=== PATIENT | female | born 1940 | race Caucasian/White ===

== ENCOUNTER 2023-09-21 12:16 | Inpatient (IN) | payer MEDICARE, BC ==
[~2023-09-21] VITALS: Ht 152.4 cm; Wt 53.5 kg
[2023-09-21 13:02] LABS: BASOPHILS # (AUTO) 0.1 K/uL (0.0-0.2); BASOPHILS % (AUTO) 0.4 % (0.0-2.0); EOSINOPHILS % (AUTO) 0.2 % (0.0-6.0); HEMATOCRIT 40 % (33-45); HEMOGLOBIN 12.3 g/dL (11.5-14.8); LYMPHOCYTES # (AUTO) 0.7 K/uL (0.8-4.8); LYMPHOCYTES % (AUTO) 5.3 % (20.0-44.0); MEAN CORPUSCULAR HEMOGLOBIN 25 PG (26.0-33.0); MEAN CORPUSCULAR HGB CONC 31 g/dl (31.0-36.0); MEAN CORPUSCULAR VOLUME 81 fL (82-100); MONOCYTES # (AUTO) 0.9 K/uL (0.1-1.30); MONOCYTES % (AUTO) 7.5 % (2.0-12.0); NEUTROPHILS # (AUTO) 10.6 K/uL (1.8-8.9); NEUTROPHILS % (AUTO) 86.6 % (43.0-81.0); PLATELET COUNT (AUTO) 214 K/uL (150-450); RED BLOOD CELL COUNT(AUTO) 4.87 MIL/uL (4.0-5.2); WHITE BLOOD COUNT (AUTO) 12.3 K/uL (4.3-11.0)
[2023-09-21 13:10] LABS: CALCIUM, SERUM 8.7 mg/dL (8.5-10.1); CREATININE 0.8 mg/dL (0.6-1.3); POTASSIUM 4.7 mmol/L (3.5-5.1)
[2023-09-21 13:16] LABS: ALBUMIN 2.7 g/dL (3.4-5.0); BILIRUBIN,DIRECT 0.2 mg/dL (0.0-0.2); BILIRUBIN,TOTAL 0.5 mg/dL (0.2-1.0); TOTAL PROTEIN, SERUM 6.4 g/dL (6.4-8.2)
[2023-09-21] MEDS ORDERED: ONDANSETRON HCL/PF 4 MG/2 ML VIAL ONE (13:38)
[2023-09-21] MEDS ORDERED: MORPHINE SULFATE INJ 4 MG/ML DISP.SYRIN ONE (13:39)
[2023-09-21] MEDS ORDERED: BUME2TAB7 PO (13:42)
[2023-09-21] MEDS ORDERED: APIX2.5T PO (13:42)
[2023-09-21] MEDS ORDERED: POLY17PO4 PO (13:42)
[2023-09-21] MEDS ORDERED: GABA600T12 PO (13:42)
[2023-09-21] MEDS ORDERED: ASCO-352 PO (13:42)
[2023-09-21] MEDS ORDERED: MAGN400O6 PO (13:42)
[2023-09-21] MEDS ORDERED: ZINC50TA69 PO (13:42)
[2023-09-21] MEDS ORDERED: PSEU60TA94 PO (13:42)
[2023-09-21] MEDS ORDERED: DIGO125T PO (13:42)
[2023-09-21] MEDS ORDERED: POVI3780 TP (13:42)
[2023-09-21] MEDS ORDERED: DICL100G26 TP (13:42)
[2023-09-21] MEDS ORDERED: LEVO25TA9 PO (13:42)
[2023-09-21] MEDS ORDERED: RIME75TA PO (13:42)
[2023-09-21] MEDS ORDERED: BACL10TA PO (13:42)
[2023-09-21] MEDS ORDERED: TRAM50TA2 PO (13:42)
[2023-09-21] MEDS ORDERED: BISA10SU11 RC (13:42)
[2023-09-21] MEDS ORDERED: OXYC15TA2 PO (13:42)
[2023-09-21] MEDS ORDERED: METO-357 PO (13:42)
[2023-09-21] MEDS ORDERED: ACET-2605 PO (13:42)
[2023-09-21] MEDS ORDERED: MULT-213 PO (13:42)
[2023-09-21] MEDS ORDERED: NALO4SPR NS (13:42)
[2023-09-21] MEDS ORDERED: LIDO1ADH82 TP (13:42)
[2023-09-21] MEDS ORDERED: CHOL5POW PO (13:42)
[2023-09-21] MEDS ORDERED: NA P133E RC (13:42)
[2023-09-21 13:45] LABS: APPEARANCE,URINE Clear (CLEAR); BILIRUBIN,URINE Negative (NEGATIVE); BLOOD, URINE Small Ery/uL (NEGATIVE); COLOR,URINE YELLOW (YELLOW); KETONES,URINE Negative (NEGATIVE); LEUKOCYTE ESTERASE ,URINE Negative (NEGATIVE); NITRITE, URINE Negative (NEGATIVE); PROTEIN,URINE Negative (NEGATIVE); UGLUCOSE Negative (NEGATIVE); UROBILINOGEN,URINE 0.2 EU/dL (0.2)
[2023-09-21] MEDS: MORPHINE SULFATE INJ 2 MG/ML DISP.SYRIN IV ONE (13:52)
[2023-09-21] MEDS: ONDANSETRON HCL/PF 4 MG/2 ML VIAL IV ONE (13:52)
[2023-09-21 13:55] LABS: ADD URINE CULTURE NO; BACTERIA,URINE Few /HPF (None Seen); SQUAMOUS EPITHELIAL CELL,UR Few /HPF (None Seen); WBC,URINE 0-2 /HPF (0-3)
[2023-09-21 15:03] LABS: ABG BASE EXCESS 7.2 mmol/L; ABG OXYGEN SATURATION 99.7 % (92.0-98.5); ABG PH 7.392 (7.350-7.450); ABG TOTAL HEMOGLOBIN 13.8 G/dL (12.0-16.0); COHb 0.6 % (0.5-1.5); MetHb 0.5 % (0.0-1.5); O2Hb 98.6 % (94.0-97.0); SITE, ABG Right Radial; VENT MODE, BG 15 LPM NRB
[2023-09-21] MEDS: IV NS 0.9% 1,000 ML BAG IV ONE (16:11)
[2023-09-21] MEDS: LEVOFLOXACIN 750 MG /D5W 150ML PIGGYBACK IV ONE (16:16)
[2023-09-21] MEDS: ALBUTEROL FS 2.5 MG/3 ML VIAL.NEB CONTNEB ONE (16:30)
[2023-09-21] MEDS: IPRATROPIUM NEB FS 0.5 MG/2.5 ML AMPUL.NEB NEB ONE (16:30)
[2023-09-21] MEDS: LEVOFLOXACIN 750 MG /D5W 150ML 750 MG in PREMIX 1 EA IV ONE (16:51)
[2023-09-21 17:00] VITALS: O2SAT 92
[2023-09-21 18:00] VITALS: O2SAT 95
[2023-09-21] MEDS ORDERED: MAGNESIUM HYDROXIDE 30 ML UDC PO PRN ×2 (19:00→19:30)
[2023-09-21] MEDS ORDERED: MAG HYDROX/AL HYDROX/SIMETH 30 ML UDC PO PRN (19:00)
[2023-09-21] MEDS ORDERED: LEVOFLOXACIN 500 MG /D5W 100ML 500 MG in PREMIX 1 EA IV SCH (19:00)
[2023-09-21] MEDS ORDERED: Z GUARD REMEDY 4 OZ OINT TP PRN (19:00)
[2023-09-21] MEDS ORDERED: ACETAMINOPHEN ES 500 MG TABLET PO PRN (19:30)
[2023-09-21] MEDS ORDERED: NA PHOS,M-B/NA PHOS,DI-BA 1 EA ENEMA RC PRN (19:30)
[2023-09-21] MEDS ORDERED: BISACODYL SUPP (10 MG) 10 MG/SUPP.RECT SUPP.RECT RC PRN (19:30)
[2023-09-21 20:00] VITALS: BP 102/64; TEMP 97.2; O2SAT 92
[2023-09-21] MEDS ORDERED: ENOXAPARIN SODIUM 40 MG/0.4 ML DISP.SYRIN SQ SCH ×2 (20:00→21:00)
[2023-09-21] MEDS ORDERED: PSEUDOEPHEDRINE HCL 60 MG TABLET PO PRN (20:00)
[2023-09-21] MEDS: DICLOFENAC TOPICAL 100 GM TUBE TP SCH (21:59)
[2023-09-22] VITALS (9 sets, daily range): BP systolic 96–106; BP diastolic 57–90; TEMP 97.3–98.1; O2SAT 87–100
[2023-09-22] MEDS: ZOLPIDEM TARTRATE 5 MG TABLET PO PRN (01:11)
[2023-09-22 05:52] LABS: ABG BASE EXCESS 4.7 mmol/L; ABG OXYGEN SATURATION 99.6 % (92.0-98.5); ABG PH 7.391 (7.350-7.450); ABG PO2 311.2 mmHg (75.0-100.0); AaDO2 349.8 mmHg; COHb 0.8 % (0.5-1.5); MetHb 0.3 % (0.0-1.5); O2Hb 98.5 % (94.0-97.0); SITE, ABG Right Radial
[2023-09-22] MEDS: oxyCODONE IR immediate release 5 MG TABLET PO PRN (06:41)
[2023-09-22] MEDS: GABAPENTIN 300 MG CAPSULE PO SCH (09:02)
[2023-09-22] MEDS: METOPROLOL SUCCINATE 50 MG TAB.SR.24H PO SCH (09:03)
[2023-09-22] MEDS: POLYETHYLENE GLYCOL 3350 17 GM POWD.PACK PO SCH (09:03)
[2023-09-22] MEDS: CHOLESTYRAMINE/ASPARTAME 4 G/PKT PACKET PO SCH (09:04)
[2023-09-22] MEDS: ZINC SULFATE 220 MG CAPSULE PO SCH (09:04)
[2023-09-22] MEDS: MULTIVIT W/MINERALS 1 TAB TABLET PO SCH (09:06)
[2023-09-22] MEDS: LEVOTHYROXINE SODIUM 25 MCG TABLET PO SCH (09:06)
[2023-09-22] MEDS: ASCORBIC ACID 500 MG TABLET PO SCH (09:06)
[2023-09-22] MEDS: PANTOPRAZOLE 40 MG TABLET.DR PO SCH (09:06)
[2023-09-22] MEDS: BUMETANIDE (1 MG) 1 MG TABLET PO SCH (09:07)
[2023-09-22] MEDS: LIDOCAINE 5% (PATCH) 1 EA PATCH TP SCH (09:07)
[2023-09-22 09:18] LABS: BASOPHILS % (AUTO) 0.2 % (0.0-2.0); EOSINOPHILS % (AUTO) 0.4 % (0.0-6.0); HEMATOCRIT 37 % (33-45); HEMOGLOBIN 11.5 g/dL (11.5-14.8); LYMPHOCYTES # (AUTO) 0.5 K/uL (0.8-4.8); LYMPHOCYTES % (AUTO) 4.7 % (20.0-44.0); MEAN CORPUSCULAR HEMOGLOBIN 25 PG (26.0-33.0); MEAN CORPUSCULAR HGB CONC 31 g/dl (31.0-36.0); MEAN CORPUSCULAR VOLUME 82 fL (82-100); MONOCYTES # (AUTO) 0.9 K/uL (0.1-1.30); MONOCYTES % (AUTO) 8.3 % (2.0-12.0); NEUTROPHILS # (AUTO) 9.6 K/uL (1.8-8.9); NEUTROPHILS % (AUTO) 86.4 % (43.0-81.0); PLATELET COUNT (AUTO) 199 K/uL (150-450); RED BLOOD CELL COUNT(AUTO) 4.53 MIL/uL (4.0-5.2); RED CELL DISTRIBUTION WIDTH 20.1 % (11.5-15.0); WHITE BLOOD COUNT (AUTO) 11.1 K/uL (4.3-11.0)
[2023-09-22 09:37] LABS: CALCIUM, SERUM 7.5 mg/dL (8.5-10.1); CREATININE 0.8 mg/dL (0.6-1.3); MAGNESIUM 1.8 mg/dL (1.8-2.4); PHOSPHORUS 4.2 mg/dL (2.5-4.9)
[2023-09-22 09:45] LABS: THYROID STIMULATING HORMONE 40.336 uIU/mL (0.358-3.74)
[2023-09-22] MEDS: DIGOXIN 0.125 MG TABLET PO SCH (15:42)
[2023-09-22 17:03] LABS: ABG BASE EXCESS 5.1 mmol/L; ABG OXYGEN SATURATION 40.7 % (92.0-98.5); ABG PCO2 56.8 mmHg (35.0-45.0); ABG PH 7.366 (7.350-7.450); ABG PO2 26.6 mmHg (75.0-100.0); ABG TOTAL HEMOGLOBIN 12.1 G/dL (12.0-16.0); AaDO2 193.3 mmHg; COHb 0.6 % (0.5-1.5); MetHb 0.5 % (0.0-1.5); O2Hb 40.3 % (94.0-97.0); SITE, ABG Left Radial; VENT MODE, BG Nasal cannula
[2023-09-22] MEDS: TRAMADOL HCL 50 MG TABLET PO PRN (21:56)
[2023-09-23] VITALS (7 sets, daily range): BP systolic 96–127; BP diastolic 72–88; TEMP 97.5–97.9; O2SAT 93–98
[2023-09-23 07:50] LABS: CALCIUM, SERUM 8.3 mg/dL (8.5-10.1); CREATININE 0.7 mg/dL (0.6-1.3); PHOSPHORUS 3.5 mg/dL (2.5-4.9); POTASSIUM 4.1 mmol/L (3.5-5.1)
[2023-09-23 08:08] LABS: BASOPHILS % (AUTO) 0.4 % (0.0-2.0); EOSINOPHILS # (AUTO) 0.2 K/uL (0.0-0.7); EOSINOPHILS % (AUTO) 2.3 % (0.0-6.0); HEMATOCRIT 36 % (33-45); HEMOGLOBIN 11.5 g/dL (11.5-14.8); LYMPHOCYTES # (AUTO) 0.6 K/uL (0.8-4.8); LYMPHOCYTES % (AUTO) 6.1 % (20.0-44.0); MEAN CORPUSCULAR HEMOGLOBIN 26 PG (26.0-33.0); MEAN CORPUSCULAR HGB CONC 32 g/dl (31.0-36.0); MEAN CORPUSCULAR VOLUME 82 fL (82-100); MONOCYTES # (AUTO) 0.9 K/uL (0.1-1.30); MONOCYTES % (AUTO) 9.5 % (2.0-12.0); NEUTROPHILS % (AUTO) 81.7 % (43.0-81.0); PLATELET COUNT (AUTO) 206 K/uL (150-450); RED BLOOD CELL COUNT(AUTO) 4.41 MIL/uL (4.0-5.2); RED CELL DISTRIBUTION WIDTH 19.9 % (11.5-15.0); WHITE BLOOD COUNT (AUTO) 9.8 K/uL (4.3-11.0)
[2023-09-23] MEDS ORDERED: RIMEGEPANT SULFATE PO SCH (09:00)
[2023-09-23] MEDS: LEVOFLOXACIN 750 MG /D5W 150ML 750 MG in PREMIX 1 EA IV SCH (12:16)
[2023-09-23] MEDS ORDERED: LEVOFLOXACIN 500 MG /D5W 100ML 500 MG in PREMIX 1 EA IV SCH (13:00)
[2023-09-24] VITALS (8 sets, daily range): BP systolic 104–126; BP diastolic 76–88; TEMP 97.5–98; O2SAT 95–98
[2023-09-24] MEDS: ONDANSETRON HCL/PF 4 MG/2 ML VIAL IVP PRN (05:22)
[2023-09-24] MEDS: MUPIROCIN OINT 2% 22 GM TUBE TP SCH (09:51)
[2023-09-24 14:11] LABS: BASOPHILS # (AUTO) 0.1 K/uL (0.0-0.2); BASOPHILS % (AUTO) 0.9 % (0.0-2.0); EOSINOPHILS # (AUTO) 0.2 K/uL (0.0-0.7); EOSINOPHILS % (AUTO) 1.7 % (0.0-6.0); HEMATOCRIT 43 % (33-45); HEMOGLOBIN 13.1 g/dL (11.5-14.8); LYMPHOCYTES # (AUTO) 0.5 K/uL (0.8-4.8); LYMPHOCYTES % (AUTO) 3.9 % (20.0-44.0); MEAN CORPUSCULAR HEMOGLOBIN 26 PG (26.0-33.0); MEAN CORPUSCULAR HGB CONC 30 g/dl (31.0-36.0); MEAN CORPUSCULAR VOLUME 84 fL (82-100); MONOCYTES # (AUTO) 1.3 K/uL (0.1-1.30); MONOCYTES % (AUTO) 10.1 % (2.0-12.0); NEUTROPHILS # (AUTO) 10.9 K/uL (1.8-8.9); NEUTROPHILS % (AUTO) 83.4 % (43.0-81.0); PLATELET COUNT (AUTO) 190 K/uL (150-450); RED BLOOD CELL COUNT(AUTO) 5.14 MIL/uL (4.0-5.2); RED CELL DISTRIBUTION WIDTH 20.4 % (11.5-15.0); WHITE BLOOD COUNT (AUTO) 13.1 K/uL (4.3-11.0)
[2023-09-24 14:23] LABS: INR 1.22 (0.91-1.10); PROTHROMBIN TIME 12.8 SECS (9.2-11.1)
[2023-09-24 14:25] LABS: CALCIUM, SERUM 7.8 mg/dL (8.5-10.1); CREATININE 0.7 mg/dL (0.6-1.3); PHOSPHORUS 3.5 mg/dL (2.5-4.9); POTASSIUM 3.8 mmol/L (3.5-5.1)
[2023-09-24] MEDS: FUROSEMIDE 40 MG/4 ML VIAL IV SCH (15:05)
[2023-09-24] MEDS: ACETAMINOPHEN 325 MG TABLET PO PRN (15:05)
[2023-09-24 20:34] LABS: ANISOCYTOSIS 1+; EOSINOPHILS % (MANUAL) 1 % (0-4); LYMPHOCYTES % (MANUAL) 4 % (16-48); MONOCYTES % (MANUAL) 8 % (0-11.0); NEUTROPHILS % (MANUAL) 87 (42-76); PLATELET ESTIMATE ADEQUATE
[2023-09-25 04:00] VITALS: BP 111/70; TEMP 97.7; O2SAT 98
[2023-09-25 06:16] VITALS: O2SAT 98
[2023-09-25 07:37] LABS: BASOPHILS % (AUTO) 0.5 % (0.0-2.0); EOSINOPHILS # (AUTO) 0.2 K/uL (0.0-0.7); EOSINOPHILS % (AUTO) 1.4 % (0.0-6.0); HEMATOCRIT 40 % (33-45); HEMOGLOBIN 12.7 g/dL (11.5-14.8); LYMPHOCYTES # (AUTO) 0.7 K/uL (0.8-4.8); LYMPHOCYTES % (AUTO) 6.3 % (20.0-44.0); MEAN CORPUSCULAR HEMOGLOBIN 26 PG (26.0-33.0); MEAN CORPUSCULAR HGB CONC 31 g/dl (31.0-36.0); MEAN CORPUSCULAR VOLUME 83 fL (82-100); MONOCYTES # (AUTO) 1.5 K/uL (0.1-1.30); MONOCYTES % (AUTO) 13.6 % (2.0-12.0); NEUTROPHILS # (AUTO) 8.5 K/uL (1.8-8.9); NEUTROPHILS % (AUTO) 78.2 % (43.0-81.0); PLATELET COUNT (AUTO) 188 K/uL (150-450); RED BLOOD CELL COUNT(AUTO) 4.87 MIL/uL (4.0-5.2); RED CELL DISTRIBUTION WIDTH 19.9 % (11.5-15.0); WHITE BLOOD COUNT (AUTO) 10.9 K/uL (4.3-11.0)
[2023-09-25 08:20] LABS: CALCIUM, SERUM 7.7 mg/dL (8.5-10.1); CREATININE 0.7 mg/dL (0.6-1.3); PHOSPHORUS 3.8 mg/dL (2.5-4.9); POTASSIUM 3.9 mmol/L (3.5-5.1)
[2023-09-25 08:59] LABS: THYROID STIMULATING HORMONE 52.262 uIU/mL (0.358-3.74)
[2023-09-25] MEDS: ENSURE ENLIVE 237 ML LIQUID (VANILLA) PO SCH (09:12)
[2023-09-25 16:00] VITALS: BP 127/71; TEMP 97.3; O2SAT 98
[2023-09-25 19:47] VITALS: O2SAT 97
[2023-09-25 20:00] VITALS: BP 113/65; TEMP 96.1; O2SAT 96
[2023-09-26 04:00] VITALS: BP 114/71; TEMP 97.3; O2SAT 98
[2023-09-26 07:34] LABS: BASOPHILS % (AUTO) 0.3 % (0.0-2.0); EOSINOPHILS # (AUTO) 0.1 K/uL (0.0-0.7); EOSINOPHILS % (AUTO) 1.2 % (0.0-6.0); HEMATOCRIT 39 % (33-45); HEMOGLOBIN 12.6 g/dL (11.5-14.8); LYMPHOCYTES # (AUTO) 0.6 K/uL (0.8-4.8); LYMPHOCYTES % (AUTO) 5.1 % (20.0-44.0); MEAN CORPUSCULAR HEMOGLOBIN 26 PG (26.0-33.0); MEAN CORPUSCULAR HGB CONC 32 g/dl (31.0-36.0); MEAN CORPUSCULAR VOLUME 82 fL (82-100); MONOCYTES # (AUTO) 0.9 K/uL (0.1-1.30); MONOCYTES % (AUTO) 8.3 % (2.0-12.0); NEUTROPHILS # (AUTO) 9.3 K/uL (1.8-8.9); NEUTROPHILS % (AUTO) 85.1 % (43.0-81.0); PLATELET COUNT (AUTO) 205 K/uL (150-450); RED BLOOD CELL COUNT(AUTO) 4.76 MIL/uL (4.0-5.2); RED CELL DISTRIBUTION WIDTH 20.2 % (11.5-15.0); WHITE BLOOD COUNT (AUTO) 10.9 K/uL (4.3-11.0)
[2023-09-26 07:54] LABS: CALCIUM, SERUM 7.8 mg/dL (8.5-10.1); CREATININE 0.7 mg/dL (0.6-1.3); POTASSIUM 3.6 mmol/L (3.5-5.1)
[2023-09-26 08:00] VITALS: BP 110/61; TEMP 97.6; O2SAT 97
[2023-09-26] MEDS: LEVOTHYROXINE SODIUM 25 MCG TABLET PO SCH (08:20)
[2023-09-26] MEDS: BACLOFEN (10 MG) 10 MG TABLET PO PRN (12:00)
[2023-09-26 16:00] VITALS: BP 104/66; TEMP 97.4; O2SAT 99
[2023-09-26 19:25] VITALS: O2SAT 96
[2023-09-27 07:23] LABS: BASOPHILS % (AUTO) 0.2 % (0.0-2.0); EOSINOPHILS # (AUTO) 0.1 K/uL (0.0-0.7); EOSINOPHILS % (AUTO) 1.3 % (0.0-6.0); HEMATOCRIT 39 % (33-45); HEMOGLOBIN 12.6 g/dL (11.5-14.8); LYMPHOCYTES # (AUTO) 0.5 K/uL (0.8-4.8); LYMPHOCYTES % (AUTO) 4.2 % (20.0-44.0); MEAN CORPUSCULAR HEMOGLOBIN 26 PG (26.0-33.0); MEAN CORPUSCULAR HGB CONC 32 g/dl (31.0-36.0); MEAN CORPUSCULAR VOLUME 80 fL (82-100); MONOCYTES % (AUTO) 8.9 % (2.0-12.0); NEUTROPHILS # (AUTO) 9.5 K/uL (1.8-8.9); NEUTROPHILS % (AUTO) 85.4 % (43.0-81.0); PLATELET COUNT (AUTO) 167 K/uL (150-450); RED BLOOD CELL COUNT(AUTO) 4.86 MIL/uL (4.0-5.2); RED CELL DISTRIBUTION WIDTH 20.3 % (11.5-15.0); WHITE BLOOD COUNT (AUTO) 11.1 K/uL (4.3-11.0)
[2023-09-27 07:49] LABS: CREATININE 0.8 mg/dL (0.6-1.3); POTASSIUM 3.4 mmol/L (3.5-5.1)
[2023-09-27 08:00] VITALS: BP 120/72; TEMP 97.7; O2SAT 98
[2023-09-27 08:10] VITALS: O2SAT 96
[2023-09-27 08:34] VITALS: BP 120/72
[2023-09-27] MEDS: POTASSIUM CHLORIDE 20 MEQ TAB.PRT.SR PO SCH (09:16)
[2023-09-27] MEDS ORDERED: LEVO750T46 PO (09:29)
== END 2023-09-27 13:45 | DRG 535 ==
LOC: ER 12:54 → TELE1 19:34 → MEDSG1 09-24 08:30
PROVIDERS: ADMIT Student in an Organized Health Care Education/Training Program; ATTEND Internal Medicine
DX: S32.810A Multiple fractures of pelvis with stable disruption of pelvic ring, initial encounter for closed fracture (principal); I50.33 Acute on chronic diastolic (congestive) heart failure; J18.9 Pneumonia, unspecified organism; J96.21 Acute and chronic respiratory failure with hypoxia; J96.22 Acute and chronic respiratory failure with hypercapnia; E44.0 Moderate protein-calorie malnutrition; E87.1 Hypo-osmolality and hyponatremia; I42.9 Cardiomyopathy, unspecified; J90 Pleural effusion, not elsewhere classified; J98.11 Atelectasis; M48.56XA Collapsed vertebra, not elsewhere classified, lumbar region, initial encounter for fracture; W19.XXXA Unspecified fall, initial encounter; E86.0 Dehydration; I11.0 Hypertensive heart disease with heart failure; E03.9 Hypothyroidism, unspecified; E88.09 Other disorders of plasma-protein metabolism, not elsewhere classified; I48.0 Paroxysmal atrial fibrillation; Z88.2 Allergy status to sulfonamides; Z79.01 Long term (current) use of anticoagulants; Z20.822 Contact with and (suspected) exposure to COVID-19; Z68.23 Body mass index [BMI] 23.0-23.9, adult; D64.9 Anemia, unspecified; G43.909 Migraine, unspecified, not intractable, without status migrainosus; I27.20 Pulmonary hypertension, unspecified; S30.1XXA Contusion of abdominal wall, initial encounter; Y93.9 Activity, unspecified; Y92.129 Unspecified place in nursing home as the place of occurrence of the external cause; I73.9 Peripheral vascular disease, unspecified
CPT/HCPCS: 36415; 36600; 71045-TC; 71250-TC; 80048-TC; 80076-TC; 81001; 82803-TC; 83605-TC; 83690-TC; 83735-TC; 83880; 84100-TC; 84439-TC; 84443-TC; 84481; 84484-TC; 85025-TC; 85610-TC; 85730-TC; 87040-TC; 87081-TC; 93307-TC; 93970-TC; 94760-TC; 94762-TC; 94799-TC; 97112-TC; 97530-TC; A4216; A4223; A6253; A6403; G0378; J1940; J1956; J2270; J2405; J7050